=== PATIENT | male | born 1980 | race Caucasian/White ===

== ENCOUNTER 2025-03-06 07:31 | Emergency (ER) | payer SELFPAY ==
[~2025-03-06] VITALS: Ht 190.5 cm; Wt 107.7 kg
[~2025-03-06 07:31] MED LIST: IBUP-1984 PO; RANI-366 PO; bactrim; keflex
[2025-03-06 07:34] VITALS: TEMP 98.2
--- NOTE | 2025-03-06 08:38 | ELECTROCARDIOGRAPH REPORT ---
[facility] Test Date: 2025-03-06 Test Time: 08:35:30 Pat Name: MINESH ISBELL Department: [facility]-ER Patient ID: [facility]-[id number] Room: Gender: M Evs Attendant: : 1980 Requested By: PRISCILA FRITZ Order Number: [id number] Reading MD: Measurements Intervals [place] Rate: 73 P: 74 PA: 180 QRS: 65 QRSD: 107 T: 46 QT: 411 QTc: 453 Interpretive Statements Sinus rhythm Please click the below link to view image of tracing.
--- NOTE | 2025-03-06 08:45 | Physician Documentation ---
History of Present Illness ~ General Chief Complaint: Flu Symptoms Stated Complaint: FLU SYMPTOMS CHEST TIGHTNESS Time Seen by MD: 08:19 Primary Medical Doctor: NONE History of Present Illness Initial Comments The patient is a 44-year-old male with a history of chronic myeloid leukemia diagnosed in September 2022. His only medication is dasatinib (and occasional Xanax for anxiety). He vomited a couple x2 days ago. He has also developed some chest burning with breathing and a feeling of chest tightness, beginning two days ago. He reports that in 2022 he had COVID and this feels similar. He also has myalgias, including a headache and neck pain on both sides of his neck. He denies fever or chills. The patient lives in [place] for the past six years but is in [place] caring for his father. Medication Reconciliation Allergies: Coded Allergies: hydrocodone bit (Verified Allergy, Unknown, 03/06/25) Scheduled Ibuprofen* (Motrin*), 1-2 TAB PO Q8H Ranitidine Hcl (Zantac), 150 MG PO DAILY Miscellaneous Medications [bactrim], (Reported) [keflex], (Reported) Past Medical History Past Medical History: Chronic Pain, Extremity Fracture, Anxiety Past Surgical History: cholecystectomy, orthopedic surgeries Alcohol Use: None Drug Use: marijuana Lives with: S/O Lives In: Home Occupation: employed Review of Systems ROS A 10 system review is negative except as noted in the HPI. Physical Exam Physical Exam Vital Signs: Temperature: 98.2, Source: Temporal, Heart Rate: 81, Respiratory Rate: 20, BP: 127/74, Pulse Oximetry: 99, Weight: 107.700 Oxygen Flow Rate: 0 Physical Exam Physical Exam Vitals and nursing note reviewed. Constitutional: General: Patient is awake, alert, oriented x 4 in no acute distress and well appearing. Speech is clear and lucid. Appearance: Normal appearance. Patient is not ill-appearing, toxic-appearing or diaphoretic. HENT: Head: Normocephalic and atraumatic. Mouth/Throat: Mouth: Mucous membranes are moist. Pharynx: Oropharynx is clear. Eyes: General: No scleral icterus. Extraocular Movements: Extraocular movements intact. Pupils: Pupils are equal, round, and reactive to light. Neck: Supple, no Kernig or Brudzinski sign. Cardiovascular: Rate and Rhythm: Normal rate and regular rhythm. Heart sounds: No murmur heard. Pulmonary: Effort: No respiratory distress. Breath sounds: No wheezing, rhonchi or rales. Abdominal: General: There is no distension. Palpations: There is no fluid wave, hepatomegaly or mass. Tenderness: There is no abdominal tenderness. There is no guarding. Musculoskeletal: General: No swelling or deformity. Skin: Coloration: Skin is not jaundiced. Findings: No erythema or rash. Neurological: Mental Status: Patient is alert. EKG medically necessary in the evaluation of chest tightness and burning and interpreted by me at the time of patient evaluation. Rhythm is sinus rhythm with a rate of 73. Impression: Normal EKG. ECG reading does not show any acute signs of obvious ischemia. No evidence of A- V block. No short MO, delta waves, or wide QRS concerning for Ipjen-Fftihfqzi-Nmtpo. No long QT events on my read. I do not see evidence of Brugada with ST elevations in V1 through V3. No epsilon wave noted. No low voltage suggestive of pericardial effusion. No right ventricular strain pattern. Progress Results/Orders Results/Orders Orders - PRISCILA FRITZ MD Covid19 Binax Poc Result Entry (03/06/25 08:36) Chest,Single View (03/06/25 08:36) Electrocardiogram (03/06/25 ) Completed Orders - PRISCILA FRITZ MD Electrocardiogram (03/06/25 ) CMP (03/06/25 08:36) Cbc/Diff (03/06/25 08:36) C-Reactive Protein (03/06/25 08:36) Influenza Type A&B Rapid Test (03/06/25 08:36) LA (03/06/25 08:36) Lipase (03/06/25 08:36) MG (03/06/25 08:36) Procalcitonin (03/06/25 08:36) Pt Inr (03/06/25 08:36) Uric Acid (03/06/25 08:36) Ethanol (03/06/25 08:36) Drug Screen, Urine (03/06/25 08:36) Chest,Single View (03/06/25 08:36) Acetaminophen 1,000mg/100ml Iv (Ofirmev (03/06/25 14:00) Acetaminophen 1,000mg/100ml Iv (Ofirmev (03/06/25 09:31) Ua W/Microscopic, Cult If Ind (03/06/25 08:50) Hs Troponin I W Calculations (03/06/25 10:23) D-Dimer (03/06/25 08:52) Hs Troponin I W Calculations (03/06/25 08:52) Medications Received in ER Medications (Trade) Dose Ordered Sig/Adeola Route PRN Reason Start Time Stop Time Status Last Admin Dose Admin Acetaminophen 100 ml @ 400 mls/hr ONCE STAT IV 03/06/25 09:31 03/06/25 09:45 DC 03/06/25 09:43 400 MLS/HR Vital Signs 03/06/25 03/06/25 03/06/25 03/06/25 07:34 08:12 09:00 11:11 Temp 98.2 Pulse 90 81 64 Resp 18 20 15 13 B/P (MAP) 126/79 127/74 (91) 95/52 (66) Pulse Ox 98 99 99 O2 Flow Rate 0 0 0 Laboratory Tests Test 03/06/25 08:47 03/06/25 08:50 03/06/25 08:52 03/06/25 11:33 Influenza Type A Antigen Negative Influenza Type B Antigen Negative SARS-CoV-2 Antigen (Rapid) Negative Urine Specimen Description Non-specified Urine Color Yellow Urine Clarity Clear Urine pH 5.5 Urine Specific [place] 1.020 Urine Protein Negative Urine Glucose (UA) Negative Urine Ketones >=80 Urine Occult Blood Trace-intact Urine Nitrite Negative Urine Bilirubin Negative Urine Urobilinogen 2.0 H Urine Leukocyte Esterase Negative Urine RBC 0-2 Urine WBC 0-4 Urine Squamous Epithelial Cells Few Urine Bacteria None seen Urine Mucus Few Urine Culture Indicated Not ind Volume Urine Centrifuged 10 ml Urine Comment Urine Opiates Screen Negative Urine Methadone Screen Negative Urine Fentanyl Screen Negative Urine Barbiturates Screen Negative Urine Phencyclidine Screen Negative Urine Amphetamines Screen Negative Urine Benzodiazepines Screen Negative Urine Cocaine Screen Negative Urine Cannabinoids Screen Positive Drug Screen Comment White Blood Count 5.5 Red Blood Count 4.64 L Hemoglobin 14.0 Hematocrit 40.8 L Mean Corpuscular Volume 87.8 Mean Corpuscular Hemoglobin 30.1 Mean Corpuscular Hemoglobin Concent 34.3 Red Cell Distribution Width 13.8 Platelet Count 206 Mean Platelet Volume 6.5 L Neutrophils (%) (Auto) 68.3 Lymphocytes (%) (Auto) 20.2 L Monocytes (%) (Auto) 10.5 Eosinophils (%) (Auto) 0.7 Basophils (%) (Auto) 0.3 Neutrophils # (Auto) 3.8 Lymphocytes # (Auto) 1.1 Monocytes # (Auto) 0.6 Eosinophils # (Auto) 0.0 Basophils # (Auto) 0.0 CBC Comment Prothrombin Time 13.0 H INR International Normalized Ratio 1.3 D-Dimer < 0.19 D-Dimer Comment Coagulation Comments Sodium Level 137 Potassium Level 3.5 Chloride Level 101 Carbon Dioxide Level 26.6 Anion Gap 9 Blood Urea Nitrogen 12 Creatinine 1.00 Estimated GFR/1.73 m2 82 BUN/Creatinine Ratio 12.0 Glucose Level 108 H Lactic Acid Level 0.8 Uric Acid 4.9 Calcium Level 8.7 Magnesium Level 2.1 Total Bilirubin 1.3 H Aspartate Amino Transf (AST/SGOT) 22 Alanine Aminotransferase (ALT/SGPT) 23 Alkaline Phosphatase 53 Troponin I High Sensitivity 11 10 C-Reactive Protein 1.93 H Total Protein 7.5 Albumin 4.1 Globulin 3.4 Albumin/Globulin Ratio 1.2 Lipase 22 Procalcitonin 0.17 Chemistry Comments Ethyl Alcohol Level < 10 Troponin I High Sens Percent Delta 9 Troponin I Hi Sens Absolute Change -1 Medical Decision Making Additional information obtaine: N/A Findings The patient's laboratory and imaging data are all reassuring. Serologies negative for influenza and COVID. It is likely he has a viral infection but there is no evidence of sepsis or other serious condition. Differential Diagnosis This patient appears to have a viral illness without evidence for sepsis, ischemia or PE. He reports feeling much better after receiving acetaminophen and I will have him continue this. Departure Disposition: HOME / SELF CARE / HOMELESS Impression: Primary Impression: Viral infection Condition: Stable Additional Instructions: Please continue using acetaminophen, as needed. You may take two extra-strength tablets (1000 mg) every six hours, as needed. Be sure to stay well hydrated. Return here for worsening symptoms or new/unusual symptoms. Referrals: NO PRIMARY CARE PROVIDER (PCP) Education Educated: Patient Educated regarding: diagnosis, treatment, prognosis, need for follow up Signature Scribe Signature: . Attestation: PRISCILA WOODS MD Mar 06, 2025 08:45
[2025-03-06 09:06] LABS: MEAN PLATELET VOLUME 6.5 FL (7.4-10.4); RED CELL DISTRIBUTION WIDTH 13.8 % (11.5-14.5)
[2025-03-06 09:16] LABS: INFLUENZA TYPE A ANTIGEN RAPID NEGATIVE (Negative); INFLUENZA TYPE B ANTIGEN RAPID NEGATIVE (Negative)
[2025-03-06 09:18] LABS: INR 1.3 INR
--- NOTE | 2025-03-06 09:18 | RADIOLOGY REPORT ---
CHEST RADIOGRAPH INDICATION: Chest pain TECHNIQUE: Single frontal view of the chest was obtained COMPARISON: None FINDINGS: Lines and Tubes: None Lungs: Clear Pleura: No effusion. No pneumothorax. Cardiomediastinal contours: Unremarkable Bones: Unremarkable IMPRESSION: 1. No acute disease.
[2025-03-06 09:34] LABS: CREATININE 1.00 MG/DL (0.60-1.10); TOTAL CARBON DIOXIDE 26.6 MMOL/L (24-32); eCRCL 115 ML/MIN; eGFR 82 ML/MIN
[2025-03-06 09:39] LABS: ETHANOL < 10 MG/DL (<10)
[2025-03-06 09:39] LABS: LEUKOCYTE ESTERASE ,URINE NEGATIVE (Neg); NITRITES, URINE NEGATIVE (Neg); OCCULT BLOOD,URINE TRACE-INTACT (Neg)
[2025-03-06] MEDS: acetaminophen 1,000mg/100ml IV 100 ML IV STA (09:43)
[2025-03-06 09:49] LABS: URINE AMPHETAMINE SCREEN NEGATIVE (Neg); URINE BARBITUATE SCREEN NEGATIVE (Neg); URINE BENZODIAZEPINES SCREEN NEGATIVE (Neg); URINE CANNABINOID SCREEN POSITIVE (Neg); URINE COCAINE SCREEN NEGATIVE (Neg); URINE METHADONE SCREEN NEGATIVE (Neg); URINE OPIATE SCREEN NEGATIVE (Neg); URINE PHENCYCLIDINE SCREEN NEGATIVE (Neg)
[2025-03-06 10:10] LABS: UA COLLECTION TYPE NON-SPECIFIED
[2025-03-06 10:11] LABS: MUCUS STRANDS FEW /LPF (Neg); SQUAMOUS EPITHELIAL CELL,UR FEW /LPF (FEW)
[2025-03-06 13:27] VITALS: BP 127/64; PULSE 81; RESP 14; O2SAT 99
[2025-03-06] MEDS ORDERED: acetaminophen 1,000mg/100ml IV 100 ML IV SCH (14:00)
== END 2025-03-06 13:29 | disposition home or self-care (01) ==
LOC: ER 07:32
DX: B34.9 Viral infection, unspecified (principal); F41.9 Anxiety disorder, unspecified; G89.29 Other chronic pain; F12.90 Cannabis use, unspecified, uncomplicated; Z90.49 Acquired absence of other specified parts of digestive tract; Z88.5 Allergy status to narcotic agent; Z79.899 Other long term (current) drug therapy; Z98.890 Other specified postprocedural states; Z20.822 Contact with and (suspected) exposure to COVID-19
CPT/HCPCS: 36415; 71045; 80053; 80305; 80320; 81001; 83605; 83690; 83735; 84145; 84484; 84550; 85025; 85379; 85610; 86140; 87804; 87811; 93005; 96365; 99285; J0131